=== PATIENT | male | born 1970 | race Caucasian/White ===

== ENCOUNTER 2018-09-25 08:44 | Day surgery (SDC) | payer MEDICAID ==
[~2018-09-25] VITALS: Ht 180.3 cm; Wt 87.7 kg
[2018-09-25] MEDS ORDERED: PROTONIX40 MG PO (09:20)
[2018-09-25 09:27] VITALS: Ht 180.3 cm; Wt 87.7 kg
[2018-09-25 09:40] LABS: HEMATOCRIT 44.3 % (42.0-54.0); HEMOGLOBIN 15.2 g/dL (13.5-17.5); MCHC 34.3 g/dL (31.0-37.0); MCV 84.4 fL (80.0-100.0); MEAN PLATELET VOLUME 9.8 fL (7.4-10.4); RBC 5.25 10x6/uL (4.20-6.10); RDW 13.1 % (11.5-14.5); WBC 4.5 10x3/uL (4.8-10.8)
--- NOTE | 2018-09-25 17:25 | OP ---
PATIENT NAME: TYLER COOPER MEDICAL RECORD: [id number] :74 LOCATION:[facility] ADMISSION DATE: SURGEON: LIAM MEDINA MD DATE OF OPERATION: 09/25/2018 PREOPERATIVE DIAGNOSES: 1. History of long segment Ayoub esophagus. 2. Gastroesophageal reflux, intractable. 3. Volume reflux with an aspiration at night. POSTOPERATIVE DIAGNOSES: 1. History of long segment Ayoub esophagus. 2. Gastroesophageal reflux, intractable. 3. Volume reflux with an aspiration at night. 4. Large hiatal hernia. PROCEDURES: 1. Esophagogastroduodenoscopy with antral and multiple distal esophageal biopsies. 2. Gastric hot biopsy forceps polypectomy times 1. 3. Ablation of 11 gastric polyps utilizing the argon plasma beam builder helper. SURGEON: Liam Medina MD SCRAP HANDLER: None. BLOOD LOSS: Minimal. ANESTHESIA: IV sedation. COMPLICATIONS: None. The risks were explained to the patient. A consent form was signed. ENDOSCOPIC COURSE: The patient was conveyed to the endoscopy suite electively on 09/25/2018. IV sedation was induced by the anesthesia staff. A bite block was inserted. A gastroscope was inserted into the mouth. It was advanced easily into the hypopharynx. The esophagus was easily intubated as were the stomach and duodenum. Upon withdrawal, retroflexed and angulus views were obtained. Antral biopsies were obtained to rule out H. pylori. I identified the largest of the gastric polyps and this was removed utilizing the hot biopsy forceps polypectomy technique. I elected to ablate the rest of the polyps. This was done with the argon plasma beam builder helper utilizing the pulsed mode and the esophageal setting. I then withdrew into the esophagus. The last 6 cm of the esophagus contained Ayoub's esophagus. I biopsied in 4 quadrants every centimeter up the Ayoub's. The endoscope was then withdrawn under direct vision. The patient will be a candidate for Ayoub ablation utilizing the Barrx device and due to volume reflux at night would also be a candidate for a laparoscopic hiatal hernia repair with a laparoscopic Manuel fundoplication. First he would need to undergo barium swallow and an esophageal manometry if this is desired. The patient gives a history of aspirating at night as well as regurgitation up OPERATIVE REPORT [id number] TYLER COOPER into the mouth. He states this is better if he is able to build his own wedge by using some pillows. There is no need for him to follow up with me in the office unless he develops a complication related to his operative procedure. If necessary, I can see him in consultation out at the long-term when I round there. TRANSINT:[id number] Voice Confirmation ID: [id number] DOCUMENT ID: [id number] LIAM MEDINA MD at 1725 CC: SEKOU ATKINS MD, LIAM ESPINAL MD, BENNETT FIGUEROA MD and [id number] L DICTATION DATE: 09/25/18 1158 FIRE ENGINEER: 09/25/18 1225 [facility] [place] 09/25/18 [id number] [place] [address]
== END 2018-09-25 12:44 ==
LOC: EDSEX 08:44 → D.OPS 08:44
PROVIDERS: Anesthesiology; ATTEND Surgery
DX: K21.0 Gastro-esophageal reflux disease with esophagitis (principal); K22.70 Barrett's esophagus without dysplasia; K29.50 Unspecified chronic gastritis without bleeding; K44.9 Diaphragmatic hernia without obstruction or gangrene; K31.7 Polyp of stomach and duodenum; Z01.812 Encounter for preprocedural laboratory examination